=== PATIENT | male | born 1985 | race Caucasian/White ===

== ENCOUNTER 2017-10-25 02:25 | Emergency (ER) | payer SELFPAY, OTHER ==
[2017-10-25] MEDS: DIPHTH/TET/ACEL PERTUSS (ADULT) 0.5 ML VIAL IM* (02:43)
[2017-10-25] MEDS: FENTAnyl 50 MCG/ML VIAL IV (02:43)
[2017-10-25] MEDS: SOD CHLORIDE 0.9% 500 ML IV (02:45)
[2017-10-25 02:51] LABS: ADD MAN DIFF? NO
[2017-10-25 02:53] LABS: WHITE BLOOD COUNT 9.6 10^3/ul (4.8-10.8)
[2017-10-25 02:53] LABS: BASOPHIL # 0.1 10^3/ul (0.0-0.1); BASOPHILS % 0.7 % (0.0-2.0); EOSINOPHILS # 0.2 10^3/ul (0.0-0.5); HEMATOCRIT 46.6 % (42.0-52.0); LYMPHOCYTES # 3.5 10^3/ul (0.8-2.9); MEAN CORPUSCULAR HEMOGLOBIN 28.5 pg (29.0-33.0); MEAN CORPUSCULAR HGB CONC 34.3 g/dl (32.0-37.0); MEAN CORPUSCULAR VOLUME 83.1 fl (82.0-101.0); MONOCYTE # 0.6 10^3/ul (0.3-0.9); MONOCYTES % 6.7 % (0.0-11.0); NEUTROPHIL # 5.2 10^3/ul (1.6-7.5); NEUTROPHILS % 53.8 % (39.0-77.0); PLATELET COUNT 291 10^3/UL (140-415); RED BLOOD COUNT 5.61 10^6/ul (4.70-6.10); RED CELL DISTRIBUTION WIDTH 11.7 % (11.5-14.5)
[2017-10-25] MEDS: SOD CHLORIDE 0.9% 100 ML (02:57)
[2017-10-25] MEDS: IOHEXOL 300MG/ML 150 ML BTL (02:57)
[2017-10-25 03:20] LABS: ANION GAP 18 (8-16); BLOOD UREA NITROGEN 13 mg/dl (7-20); CALCIUM 9.4 mg/dl (8.4-10.2); CARBON DIOXIDE 20 mmol/L (21-31); CHLORIDE 107 mmol/L (97-110); CREATININE 0.84 mg/dl (0.61-1.24); GLUCOSE 102 mg/dl (70-220); SODIUM 141 mmol/L (135-144)
[2017-10-25 03:32] LABS: TROPONIN-I < 0.012 ng/ml (0.000-0.120)
[2017-10-25] MEDS ORDERED: LIDOCAINE 1%/EPI (MDV) 50 ML INJ INJ (04:00)
[2017-10-25] MEDS: LIDOCAINE 1%/EPI (1:100,000) (MDV) 20 ML INJ (04:31)
[2017-10-25] MEDS: CEFAZOLIN 2 GM/50 ML (PMX) 50 ML IVPB (04:32)
== END 2017-10-25 05:20 | disposition home or self-care (01) ==
LOC: E/R 02:25
DX: S21.112A Laceration without foreign body of left front wall of thorax without penetration into thoracic cavity, initial encounter (principal); R07.9 Chest pain, unspecified; X99.9XXA Assault by unspecified sharp object, initial encounter; Z23 Encounter for immunization; Z79.4 Long term (current) use of insulin; Z79.82 Long term (current) use of aspirin
CPT/HCPCS: 12002; 71045; 71260; 80048; 84484; 85025; 86850; 86900; 86901; 90471; 90715; 93005; 96374; 96375; 99285-25